=== PATIENT | male | born 1980 | race Caucasian/White ===

== ENCOUNTER 2021-12-28 19:06 | Emergency (ER) | payer BC ==
[2021-12-28] MEDS ORDERED: Acetaminophen/HYDROcodone 325-5 MG Tab PO ONE (19:37)
[2021-12-28] MEDS: Colchicine 0.6 MG Tab PO ONE ×2 (19:49→19:56)
== END 2021-12-28 20:28 | disposition home or self-care (01) ==
LOC: MW.ED 19:06
DX: M10.9 Gout, unspecified (principal)
CPT/HCPCS: 99283; A9270